=== PATIENT | male | born 1970 | race Caucasian/White ===

== ENCOUNTER 2017-07-30 16:37 | Emergency (ER) | payer OTHER ==
[~2017-07-30] VITALS: Ht 185.4 cm; Wt 135.0 kg
[2017-07-30 18:02] LABS: BILIRUBIN NEGATIVE; BLOOD NEGATIVE; GLUCOSE (STRIP) NEGATIVE; KETONES 5; LEUKOCYTES NEGATIVE; NITRITE NEGATIVE; PROTEIN (STRIP) 30; SPECIFIC GRAVITY 1.026 (1.000-1.030); UROBILINOGEN 0.2 MG/DL (0.2-1.0)
[2017-07-30 18:07] LABS: APPEARANCE CLEAR ((CLEAR)); COLOR DK YELLOW ((YELLOW)); UCUL ADDED? NO
[2017-07-30 18:15] LABS: HEMATOCRIT 48.3 % (38.0-50.0); HEMOGLOBIN 16.9 G/DL (12.5-16.6); MCH 30.8 PG (29.0-34.0); MCV 88.1 FL (86-99); PLATELET COUNT 228 K/uL (156-360); RBC DIS.WIDTH-CV 13.1 % (11.8-14.6); RBC DIS.WIDTH-SD 42.3 % (39-53); RED BLOOD COUNT 5.48 M/uL (4.00-5.50); WHITE BLOOD COUNT 15.1 K/uL (4.1-10.2)
[2017-07-30 18:24] LABS: ALBUMIN 5.2 g/dL (3.2-4.8); CHLORIDE 102 mEq/L (99-109); POTASSIUM 4.1 mEq/L (3.7-5.4); SODIUM 138 mEq/L (136-147)
[2017-07-30 18:27] LABS: GLUCOSE 156 mg/dL (70-99); TOTAL PROTEIN 8.9 g/dL (6.4-8.3)
[2017-07-30 18:30] LABS: ALKALINE PHOSPHATASE 98 IU/L (3-129); CREATININE 2.6 mg/dL (0.6-1.3); GFR ESTIMATE (CALCULATED) 28 mL/min/ (58.99-99999)
[2017-07-30 18:31] LABS: UREA NITROGEN (BUN) 32 mg/dL (9-23)
[2017-07-30 18:32] LABS: AST (GOT) 32 IU/L (2-34)
[2017-07-30 18:33] LABS: ALT (GPT) 40 IU/L (3-49); CREATINE KINASE 344 IU/L (1-294)
[2017-07-30 21:44] LABS: CHLORIDE 106 mEq/L (99-109); POTASSIUM 4.1 mEq/L (3.7-5.4); SODIUM 139 mEq/L (136-147)
[2017-07-30 21:45] LABS: GLUCOSE 118 mg/dL (70-99)
[2017-07-30 21:49] LABS: GFR ESTIMATE (CALCULATED) 43 mL/min/ (58.99-99999)
[2017-07-30 21:50] LABS: CREATININE 1.8 mg/dL (0.6-1.3); UREA NITROGEN (BUN) 30 mg/dL (9-23)
[2017-07-30 22:30] VITALS: BP 115/67
== END 2017-07-30 23:06 | disposition home or self-care (01) ==
LOC: EME 16:37
PROVIDERS: Physician Assistant
DX: E86.0 Dehydration (principal); N17.9 Acute kidney failure, unspecified; E78.5 Hyperlipidemia, unspecified; I10 Essential (primary) hypertension
CPT/HCPCS: 80048 91; 80053; 81003; 82550; 85027; 99281; 99284; J7030